=== PATIENT | female | born 1950 ===

== ENCOUNTER 2021-03-04 21:29 | Inpatient (IN) ==
[2021-03-05] MEDS ORDERED: Naloxone 0.4 MG/ML INJ IVP PRN (06:22)
[2021-03-05] MEDS ORDERED: Melatonin 3 MG TABLET PO PRN (06:22)
[2021-03-05 06:58] LABS: Basophils % 0.2 %; Hematocrit 30.9 % (35.3-44.9); Hemoglobin 10.1 g/dL (11.5-15.4); Immature Granulocytes % 1.3 % (0-4); Lymphocytes # 0.8 K/mcL (0.6-4.6); Mean Corpuscular HGB Conc 32.7 g/dL (31.6-35.5); Mean Corpuscular Hemoglobin 28.5 pg (28.0-33.3); Mean Corpuscular Volume 87.3 fL (83.0-100.0); Mean Platelet Volume 10.3 fL (9.4-12.4); Monocytes # 0.6 K/mcL (0.0-1.3); Monocytes % 6.6 %; Neutrophils # 7.8 K/mcL (1.6-8.9); Platelet Count 435 K/mcL (140-400); Red Blood Count 3.54 M/mcL (3.82-4.97); Red Cell Distribution Width 15.1 % (11.5-14.5); Segmented Neutrophils % 83.9 %; White Blood Count 9.4 K/mcL (4.3-11.1)
[2021-03-05] MEDS ORDERED: *HR* Dextrose 50 % in Water (Syg) 50 ML SYRINGE IVP PRN (07:14)
[2021-03-05] MEDS ORDERED: Dextrose Gel 15 GM/37.5 ML TUBE PO PRN ×2 (07:14)
[2021-03-05] MEDS ORDERED: D5% in Water 1,000 ML IVC PRN (07:14)
[2021-03-05] MEDS ORDERED: Insulin DETEMIR 100 UNIT/ML X5UNITS SUBQ SCH (07:15)
[2021-03-05 07:16] LABS: Lactate Dehydrogenase 674 Units/L (140-271)
[2021-03-05] MEDS ORDERED: *HR* Heparin 5,000 UNIT/ML VIAL IVP PRN ×2 (07:18)
[2021-03-05] MEDS ORDERED: *HR* Heparin 5,000 UNIT/ML VIAL IVP ONE (07:18)
[2021-03-05 07:42] LABS: Albumin 3.3 g/dL (3.5-5.7); Albumin/Globulin Ratio 0.9 (1.1-2.2); Bilirubin,Total 0.3 mg/dL (0.3-1.0); Calcium 8.4 mg/dL (8.6-10.3); Globulin 3.6 g/dL (2.4-3.5); Magnesium 2.1 mg/dL (1.6-2.6); Potassium 3.8 mEq/L (3.5-5.1); Total Protein 6.9 g/dL (6.4-8.9); Troponin I 17.11 ng/mL (< 0.04)
[2021-03-05] MEDS: Ipratropium 1 PUFF INHALER IH SCH ×3 (07:53→23:23)
[2021-03-05] MEDS ORDERED: Azithromycin 500 MG in 0.9 % Sodium Chloride 250 ML IVPB SCH (08:00)
[2021-03-05] MEDS ORDERED: cefTRIAXone 2,000 MG in Water for inj. (sterile) 20 ML IVP SCH (08:00)
[2021-03-05] MEDS ORDERED: Aspirin 325 MG TABLET PO ONE (08:15)
[2021-03-05] MEDS: Metoprolol XL (24 HR) Succ 25 MG TAB.ER.24H PO SCH (08:43)
[2021-03-05 08:44] LABS: Hematocrit 31.8 % (35.3-44.9); Hemoglobin 10.5 g/dL (11.5-15.4); Mean Corpuscular Volume 87.8 fL (83.0-100.0); Mean Platelet Volume 10.5 fL (9.4-12.4); Platelet Count 449 K/mcL (140-400); Red Blood Count 3.62 M/mcL (3.82-4.97); Red Cell Distribution Width 15.2 % (11.5-14.5); White Blood Count 9.9 K/mcL (4.3-11.1)
[2021-03-05] MEDS: Insulin LISPRO 300 UNITS/3 ML VIAL SUBQ SCH ×4 (08:45→20:47)
[2021-03-05] MEDS: Heparin 25,000UNIT/250ML 1/2NS 25,000 UNIT/250 ML IV.SOLN IVC SCH (08:50)
[2021-03-05 08:53] LABS: Heparin anti-factor XA UFH 0.56 IU/mL (0.30-0.70); INR 1.1; Prothrombin Time 12.7 Seconds (9.4-12.1)
[2021-03-05] MEDS ORDERED: Aspirin 81 MG TAB.CHEW PO SCH (09:00)
[2021-03-05] MEDS ORDERED: Furosemide 20 MG TABLET PO SCH (09:00)
[2021-03-05] MEDS ORDERED: Perflutren Lipid Microsphere 1.3 ML in 0.9 % Sodium Chloride 8.7 ML IVP PRN (09:20)
[2021-03-05] MEDS ORDERED: Isovue-370 500 ML BOTTLE IVP ONE (09:21)
[2021-03-05] MEDS ORDERED: 0.9 % Sodium Chloride 500 ML IVC ONE (09:27)
[2021-03-05 09:53] LABS: C-Reactive Protein 182 mg/L (Less than 10)
[2021-03-06] MEDS: Ipratropium 1 PUFF INHALER IH SCH ×4 (03:20→20:28)
[2021-03-06 06:54] LABS: Chol/HDL Ratio 2.7 (0-4.9)
[2021-03-06] MEDS: Heparin 25,000UNIT/250ML 1/2NS 25,000 UNIT/250 ML IV.SOLN IVC SCH (08:54)
[2021-03-06] MEDS: Insulin LISPRO 300 UNITS/3 ML VIAL SUBQ SCH ×4 (08:55→19:23)
[2021-03-06] MEDS: Cholecalciferol (D-3) 1,000 UNIT (25MCG) TABLET PO SCH (08:55)
[2021-03-06] MEDS: Metoprolol XL (24 HR) Succ 25 MG TAB.ER.24H PO SCH (08:56)
[2021-03-06] MEDS: Aspirin 81 MG TAB.CHEW PO SCH (08:56)
[2021-03-06] MEDS: Insulin DETEMIR 100 UNIT/ML X5UNITS SUBQ SCH (09:03)
[2021-03-06 10:35] LABS: Estimated Average Glucose 163 mg/dl; Hemoglobin A1C 7.3 %
[2021-03-06 16:53] LABS: Activated Partial Thrombo Time 32.9 Seconds (26.0-36.0)
[2021-03-06 17:26] LABS: Heparin anti-factor XA UFH 0.41 IU/mL (0.30-0.70)
[2021-03-07] MEDS: Ipratropium 1 PUFF INHALER IH SCH ×4 (04:04→19:58)
[2021-03-07] MEDS: Heparin 25,000UNIT/250ML 1/2NS 25,000 UNIT/250 ML IV.SOLN IVC SCH (09:21)
[2021-03-07] MEDS: Insulin DETEMIR 100 UNIT/ML X5UNITS SUBQ SCH (09:22)
[2021-03-07] MEDS: Metoprolol XL (24 HR) Succ 25 MG TAB.ER.24H PO SCH (09:22)
[2021-03-07] MEDS: Insulin LISPRO 300 UNITS/3 ML VIAL SUBQ SCH ×4 (09:22→19:28)
[2021-03-07] MEDS: Aspirin 81 MG TAB.CHEW PO SCH (09:22)
[2021-03-07] MEDS: Cholecalciferol (D-3) 1,000 UNIT (25MCG) TABLET PO SCH (09:22)
[2021-03-07 09:49] LABS: Basophils % 0.1 %; Hemoglobin 9.8 g/dL (11.5-15.4); Immature Granulocytes % 2.3 % (0-4); Lymphocytes % 4.5 %; Mean Corpuscular HGB Conc 32.7 g/dL (31.6-35.5); Mean Corpuscular Hemoglobin 28.4 pg (28.0-33.3); Mean Platelet Volume 10.3 fL (9.4-12.4); Monocytes # 1.1 K/mcL (0.0-1.3); Monocytes % 5.1 %; Neutrophils # 19.4 K/mcL (1.6-8.9); Nucleated Red Blood Cells 0.2 /100 WBC (0); Platelet Count 543 K/mcL (140-400); Red Blood Count 3.45 M/mcL (3.82-4.97); Red Cell Distribution Width 15.7 % (11.5-14.5)
[2021-03-07 10:06] LABS: Bilirubin,Total 0.4 mg/dL (0.3-1.0); Calcium 8.4 mg/dL (8.6-10.3); Globulin 3.1 g/dL (2.4-3.5); Potassium 3.8 mEq/L (3.5-5.1); Total Protein 6.1 g/dL (6.4-8.9)
[2021-03-08 00:46] LABS: Basophils % 0.1 %; Hematocrit 31.1 % (35.3-44.9); Hemoglobin 10.2 g/dL (11.5-15.4); Lymphocytes # 0.8 K/mcL (0.6-4.6); Lymphocytes % 3.6 %; Mean Corpuscular HGB Conc 32.8 g/dL (31.6-35.5); Mean Corpuscular Hemoglobin 28.5 pg (28.0-33.3); Mean Corpuscular Volume 86.9 fL (83.0-100.0); Mean Platelet Volume 10.2 fL (9.4-12.4); Monocytes # 1.3 K/mcL (0.0-1.3); Monocytes % 5.5 %; Neutrophils # 20.3 K/mcL (1.6-8.9); Nucleated Red Blood Cells 0.2 /100 WBC (0); Platelet Count 573 K/mcL (140-400); Red Blood Count 3.58 M/mcL (3.82-4.97); Red Cell Distribution Width 15.6 % (11.5-14.5); Segmented Neutrophils % 88.8 %; White Blood Count 22.8 K/mcL (4.3-11.1)
[2021-03-08 01:06] LABS: Albumin 3.1 g/dL (3.5-5.7); Bilirubin,Total 0.4 mg/dL (0.3-1.0); Calcium 8.5 mg/dL (8.6-10.3); Globulin 3.1 g/dL (2.4-3.5); Potassium 3.9 mEq/L (3.5-5.1); Total Protein 6.2 g/dL (6.4-8.9)
[2021-03-08 01:08] LABS: C-Reactive Protein 55 mg/L (Less than 10); Lactate Dehydrogenase 772 Units/L (140-271)
[2021-03-08 02:21] LABS: Ferritin 572 ng/mL (10-120)
[2021-03-08] MEDS: Ipratropium 1 PUFF INHALER IH SCH ×4 (04:36→19:25)
[2021-03-08] MEDS ORDERED: *HR* Enoxaparin 40 MG/0.4 ML SYRINGE SQ SCH (06:00)
[2021-03-08] MEDS: Insulin DETEMIR 100 UNIT/ML X5UNITS SUBQ SCH (09:08)
[2021-03-08] MEDS: Insulin LISPRO 300 UNITS/3 ML VIAL SUBQ SCH ×4 (09:08→20:00)
[2021-03-08] MEDS: Metoprolol XL (24 HR) Succ 25 MG TAB.ER.24H PO SCH (09:08)
[2021-03-08] MEDS: Aspirin 81 MG TAB.CHEW PO SCH (09:09)
[2021-03-08] MEDS: Cholecalciferol (D-3) 1,000 UNIT (25MCG) TABLET PO SCH (09:09)
[2021-03-09] MEDS: Ipratropium 1 PUFF INHALER IH SCH ×4 (03:05→19:53)
[2021-03-09] MEDS: *HR* Enoxaparin 30 MG/0.3 ML SYRINGE SQ SCH (05:10)
[2021-03-09 06:01] LABS: Basophils % 0.2 %; Hematocrit 33.2 % (35.3-44.9); Hemoglobin 10.8 g/dL (11.5-15.4); Immature Granulocytes % 1.6 % (0-4); Lymphocytes # 0.8 K/mcL (0.6-4.6); Mean Corpuscular HGB Conc 32.5 g/dL (31.6-35.5); Mean Corpuscular Hemoglobin 29.3 pg (28.0-33.3); Mean Corpuscular Volume 90.2 fL (83.0-100.0); Mean Platelet Volume 11.1 fL (9.4-12.4); Monocytes # 0.8 K/mcL (0.0-1.3); Monocytes % 3.8 %; Neutrophils # 17.9 K/mcL (1.6-8.9); Nucleated Red Blood Cells 0.2 /100 WBC (0); Platelet Count 381 K/mcL (140-400); Red Blood Count 3.68 M/mcL (3.82-4.97); Red Cell Distribution Width 15.9 % (11.5-14.5); Segmented Neutrophils % 90.4 %; White Blood Count 19.8 K/mcL (4.3-11.1)
[2021-03-09 06:34] LABS: Albumin 3.2 g/dL (3.5-5.7); Bilirubin,Total 0.6 mg/dL (0.3-1.0); Calcium 8.7 mg/dL (8.6-10.3); Globulin 3.2 g/dL (2.4-3.5); Potassium 4.3 mEq/L (3.5-5.1); Total Protein 6.4 g/dL (6.4-8.9)
[2021-03-09] MEDS: Insulin LISPRO 300 UNITS/3 ML VIAL SUBQ SCH ×4 (09:35→19:25)
[2021-03-09] MEDS: Cholecalciferol (D-3) 1,000 UNIT (25MCG) TABLET PO SCH (09:36)
[2021-03-09] MEDS: Aspirin 81 MG TAB.CHEW PO SCH (09:36)
[2021-03-09] MEDS: Insulin DETEMIR 100 UNIT/ML X5UNITS SUBQ SCH (09:36)
[2021-03-09] MEDS: Metoprolol XL (24 HR) Succ 25 MG TAB.ER.24H PO SCH (09:37)
[2021-03-10] MEDS: Ipratropium 1 PUFF INHALER IH SCH ×4 (04:11→20:54)
[2021-03-10 05:09] LABS: Basophils % 0.1 %; Eosinophils # 0.1 K/mcL (0.0-0.6); Eosinophils % 0.3 %; Hematocrit 31.7 % (35.3-44.9); Hemoglobin 10.1 g/dL (11.5-15.4); Immature Platelets 7.1 % (1.1-6.1); Lymphocytes # 0.6 K/mcL (0.6-4.6); Lymphocytes % 3.3 %; Mean Corpuscular HGB Conc 31.9 g/dL (31.6-35.5); Mean Corpuscular Hemoglobin 28.9 pg (28.0-33.3); Mean Corpuscular Volume 90.8 fL (83.0-100.0); Mean Platelet Volume 10.9 fL (9.4-12.4); Monocytes # 0.7 K/mcL (0.0-1.3); Monocytes % 3.7 %; Neutrophils # 17.6 K/mcL (1.6-8.9); Nucleated Red Blood Cells 0.2 /100 WBC (0); Platelet Count 244 K/mcL (140-400); Red Blood Count 3.49 M/mcL (3.82-4.97); Red Cell Distribution Width 15.9 % (11.5-14.5); Segmented Neutrophils % 90.6 %; White Blood Count 19.4 K/mcL (4.3-11.1)
[2021-03-10] MEDS: *HR* Enoxaparin 30 MG/0.3 ML SYRINGE SQ SCH (05:19)
[2021-03-10 05:34] LABS: Large Platelets Present (Not Present); Platelet Estimate Normal (Normal)
[2021-03-10 05:41] LABS: Albumin 3.1 g/dL (3.5-5.7); Bilirubin,Total 0.6 mg/dL (0.3-1.0); Calcium 8.4 mg/dL (8.6-10.3); Potassium 4.3 mEq/L (3.5-5.1); Total Protein 6.1 g/dL (6.4-8.9)
[2021-03-10] MEDS: Insulin LISPRO 300 UNITS/3 ML VIAL SUBQ SCH ×4 (09:44→21:08)
[2021-03-10] MEDS: Cholecalciferol (D-3) 1,000 UNIT (25MCG) TABLET PO SCH (09:55)
[2021-03-10] MEDS: Aspirin 81 MG TAB.CHEW PO SCH (09:55)
[2021-03-10] MEDS: Metoprolol XL (24 HR) Succ 25 MG TAB.ER.24H PO SCH (09:55)
[2021-03-10] MEDS: Insulin DETEMIR 100 UNIT/ML X5UNITS SUBQ SCH (09:57)
[2021-03-10] MEDS ORDERED: *HR* Enoxaparin 60 MG/0.6 ML SYRINGE SQ ONE (10:14)
[2021-03-10] MEDS: *HR* Enoxaparin 80 MG/0.8 ML SYRINGE SQ SCH (17:50)
[2021-03-11] MEDS: Ipratropium 1 PUFF INHALER IH SCH ×4 (03:17→20:15)
[2021-03-11 04:06] LABS: Basophils % 0.1 %; Eosinophils # 0.1 K/mcL (0.0-0.6); Eosinophils % 0.5 %; Hematocrit 31.5 % (35.3-44.9); Hemoglobin 9.9 g/dL (11.5-15.4); Immature Granulocytes % 1.9 % (0-4); Lymphocytes # 0.8 K/mcL (0.6-4.6); Lymphocytes % 4.1 %; Mean Corpuscular HGB Conc 31.4 g/dL (31.6-35.5); Mean Corpuscular Hemoglobin 27.8 pg (28.0-33.3); Mean Corpuscular Volume 88.5 fL (83.0-100.0); Monocytes # 0.8 K/mcL (0.0-1.3); Monocytes % 3.9 %; Neutrophils # 17.5 K/mcL (1.6-8.9); Nucleated Red Blood Cells 0.1 /100 WBC (0); Platelet Count 247 K/mcL (140-400); Red Blood Count 3.56 M/mcL (3.82-4.97); Red Cell Distribution Width 15.6 % (11.5-14.5); Segmented Neutrophils % 89.5 %; White Blood Count 19.6 K/mcL (4.3-11.1)
[2021-03-11 04:18] LABS: Calcium 8.4 mg/dL (8.6-10.3); Potassium 3.7 mEq/L (3.5-5.1)
[2021-03-11] MEDS: *HR* Enoxaparin 80 MG/0.8 ML SYRINGE SQ SCH (06:20)
[2021-03-11] MEDS: Insulin LISPRO 300 UNITS/3 ML VIAL SUBQ SCH ×4 (08:48→21:11)
[2021-03-11] MEDS ORDERED: Saline Nasal Spray 44 ML BOTTLE NS PRN (08:49)
[2021-03-11] MEDS: Aspirin 81 MG TAB.CHEW PO SCH (08:59)
[2021-03-11] MEDS: Metoprolol XL (24 HR) Succ 25 MG TAB.ER.24H PO SCH (08:59)
[2021-03-11] MEDS: Cholecalciferol (D-3) 1,000 UNIT (25MCG) TABLET PO SCH (08:59)
[2021-03-11] MEDS: Dexamethasone Sodium Phos/PF 10 MG/ML VIAL IVP SCH (09:00)
[2021-03-11] MEDS ORDERED: 0.9 % Sodium Chloride 1,000 ML IVC SCH (10:15)
[2021-03-11] MEDS: Insulin DETEMIR 100 UNIT/ML X5UNITS SUBQ SCH (13:47)
[2021-03-12] MEDS: Ipratropium 1 PUFF INHALER IH SCH ×4 (03:39→20:52)
[2021-03-12 06:27] LABS: Hematocrit 31.4 % (35.3-44.9); Hemoglobin 9.7 g/dL (11.5-15.4); Mean Corpuscular HGB Conc 30.9 g/dL (31.6-35.5); Mean Corpuscular Hemoglobin 28.1 pg (28.0-33.3); Mean Platelet Volume 11.4 fL (9.4-12.4); Platelet Count 224 K/mcL (140-400); Red Blood Count 3.45 M/mcL (3.82-4.97); Red Cell Distribution Width 15.7 % (11.5-14.5); White Blood Count 18.8 K/mcL (4.3-11.1)
[2021-03-12 06:47] LABS: Calcium 8.1 mg/dL (8.6-10.3); Magnesium 2.3 mg/dL (1.6-2.6); Phosphorous 4.7 mg/dL (2.7-4.5); Potassium 4.2 mEq/L (3.5-5.1)
[2021-03-12] MEDS ORDERED: Isovue-370 500 ML BOTTLE IVP ONE (07:23)
[2021-03-12] MEDS ORDERED: 0.9 % Sodium Chloride 1,000 ML IVC SCH (07:30)
[2021-03-12] MEDS: Insulin LISPRO 300 UNITS/3 ML VIAL SUBQ SCH ×4 (08:00→20:06)
[2021-03-12] MEDS: Metoprolol XL (24 HR) Succ 25 MG TAB.ER.24H PO SCH (09:22)
[2021-03-12] MEDS: Cholecalciferol (D-3) 1,000 UNIT (25MCG) TABLET PO SCH (09:22)
[2021-03-12] MEDS: Dexamethasone Sodium Phos/PF 10 MG/ML VIAL IVP SCH (09:22)
[2021-03-12] MEDS: Insulin DETEMIR 100 UNIT/ML X5UNITS SUBQ SCH (09:22)
[2021-03-12] MEDS: Aspirin 81 MG TAB.CHEW PO SCH (09:22)
[2021-03-12] MEDS: *HR* Enoxaparin 80 MG/0.8 ML SYRINGE SQ SCH (16:59)
[2021-03-13 04:45] LABS: Hematocrit 32.5 % (35.3-44.9); Mean Corpuscular HGB Conc 30.8 g/dL (31.6-35.5); Mean Corpuscular Hemoglobin 27.6 pg (28.0-33.3); Mean Corpuscular Volume 89.8 fL (83.0-100.0); Mean Platelet Volume 11.8 fL (9.4-12.4); Platelet Count 184 K/mcL (140-400); Red Blood Count 3.62 M/mcL (3.82-4.97); Red Cell Distribution Width 15.6 % (11.5-14.5)
[2021-03-13] MEDS: Ipratropium 1 PUFF INHALER IH SCH ×4 (04:49→20:08)
[2021-03-13 05:07] LABS: Calcium 8.1 mg/dL (8.6-10.3)
[2021-03-13] MEDS: *HR* Enoxaparin 80 MG/0.8 ML SYRINGE SQ SCH ×2 (06:41→17:21)
[2021-03-13] MEDS: Insulin LISPRO 300 UNITS/3 ML VIAL SUBQ SCH ×4 (08:23→20:10)
[2021-03-13] MEDS: Aspirin 81 MG TAB.CHEW PO SCH (08:34)
[2021-03-13] MEDS: Dexamethasone Sodium Phos/PF 10 MG/ML VIAL IVP SCH (08:34)
[2021-03-13] MEDS: Metoprolol XL (24 HR) Succ 25 MG TAB.ER.24H PO SCH (08:34)
[2021-03-13] MEDS: Cholecalciferol (D-3) 1,000 UNIT (25MCG) TABLET PO SCH (08:35)
[2021-03-13] MEDS ORDERED: Insulin DETEMIR 100 UNIT/ML X5UNITS SUBQ SCH (09:00)
[2021-03-13] MEDS ORDERED: Furosemide 20 MG TABLET PO ONE (10:19)
[2021-03-13] MEDS: ALPRAZolam 0.5 MG TABLET PO PRN ×2 (12:51→20:52)
[2021-03-13] MEDS ORDERED: Furosemide 40 MG/4 ML VIAL IVP ONE (13:59)
[2021-03-13] MEDS: Piperacillin/Tazobactam 3.375 GM in 0.9 % Sodium Chloride Mini Bag 100 ML IVPB SCH (17:21)
[2021-03-13] MEDS: Doxycycline 100 MG CAPSULE PO SCH (20:14)
[2021-03-14] MEDS: Piperacillin/Tazobactam 3.375 GM in 0.9 % Sodium Chloride Mini Bag 100 ML IVPB SCH ×4 (00:41→23:50)
[2021-03-14 02:24] LABS: Basophils % 0.1 %; Eosinophils # 0.1 K/mcL (0.0-0.6); Eosinophils % 0.3 %; Hematocrit 33.9 % (35.3-44.9); Hemoglobin 10.6 g/dL (11.5-15.4); Immature Granulocytes % 0.8 % (0-4); Lymphocytes # 0.6 K/mcL (0.6-4.6); Lymphocytes % 2.8 %; Mean Corpuscular HGB Conc 31.3 g/dL (31.6-35.5); Mean Corpuscular Volume 89.7 fL (83.0-100.0); Mean Platelet Volume 12.1 fL (9.4-12.4); Monocytes # 0.3 K/mcL (0.0-1.3); Monocytes % 1.3 %; Neutrophils # 18.7 K/mcL (1.6-8.9); Platelet Count 143 K/mcL (140-400); Red Blood Count 3.78 M/mcL (3.82-4.97); Red Cell Distribution Width 15.5 % (11.5-14.5); Segmented Neutrophils % 94.7 %; White Blood Count 19.7 K/mcL (4.3-11.1)
[2021-03-14 02:44] LABS: Albumin/Globulin Ratio 1.1 (1.1-2.2); Bilirubin,Total 0.8 mg/dL (0.3-1.0); Calcium 8.5 mg/dL (8.6-10.3); Globulin 2.7 g/dL (2.4-3.5); Potassium 3.9 mEq/L (3.5-5.1); Total Protein 5.7 g/dL (6.4-8.9)
[2021-03-14] MEDS: Ipratropium 1 PUFF INHALER IH SCH ×4 (03:30→20:09)
[2021-03-14] MEDS: *HR* Enoxaparin 80 MG/0.8 ML SYRINGE SQ SCH (06:05)
[2021-03-14] MEDS: Insulin LISPRO 300 UNITS/3 ML VIAL SUBQ SCH ×4 (07:42→20:35)
[2021-03-14] MEDS: Insulin DETEMIR 100 UNIT/ML X5UNITS SUBQ SCH (07:43)
[2021-03-14] MEDS: ALPRAZolam 0.5 MG TABLET PO PRN ×2 (07:56→21:50)
[2021-03-14] MEDS: Doxycycline 100 MG CAPSULE PO SCH ×3 (07:56→21:51)
[2021-03-14] MEDS: Aspirin 81 MG TAB.CHEW PO SCH (07:56)
[2021-03-14] MEDS: Metoprolol XL (24 HR) Succ 25 MG TAB.ER.24H PO SCH (07:56)
[2021-03-14] MEDS: Cholecalciferol (D-3) 1,000 UNIT (25MCG) TABLET PO SCH ×2 (07:56→08:14)
[2021-03-14] MEDS: Dexamethasone Sodium Phos/PF 10 MG/ML VIAL IVP SCH (07:57)
[2021-03-14] MEDS: Furosemide 40 MG/4 ML VIAL IVP SCH (12:49)
[2021-03-15] MEDS: Ipratropium 1 PUFF INHALER IH SCH ×4 (04:24→20:27)
[2021-03-15 05:03] LABS: Hematocrit 31.9 % (35.3-44.9); Hemoglobin 10.2 g/dL (11.5-15.4); Mean Corpuscular Hemoglobin 28.7 pg (28.0-33.3); Mean Corpuscular Volume 89.9 fL (83.0-100.0); Mean Platelet Volume 12.6 fL (9.4-12.4); Platelet Count 120 K/mcL (140-400); Red Blood Count 3.55 M/mcL (3.82-4.97); Red Cell Distribution Width 15.4 % (11.5-14.5)
[2021-03-15] MEDS: *HR* Enoxaparin 80 MG/0.8 ML SYRINGE SQ SCH (05:12)
[2021-03-15] MEDS: ALPRAZolam 0.5 MG TABLET PO PRN ×2 (05:13→20:30)
[2021-03-15 05:20] LABS: Potassium 4.3 mEq/L (3.5-5.1)
[2021-03-15] MEDS: Insulin LISPRO 300 UNITS/3 ML VIAL SUBQ SCH ×4 (08:55→19:58)
[2021-03-15] MEDS: Piperacillin/Tazobactam 3.375 GM in 0.9 % Sodium Chloride Mini Bag 100 ML IVPB SCH ×2 (09:06→16:35)
[2021-03-15] MEDS: Furosemide 40 MG/4 ML VIAL IVP SCH (09:06)
[2021-03-15] MEDS: Aspirin 81 MG TAB.CHEW PO SCH (09:07)
[2021-03-15] MEDS: Cholecalciferol (D-3) 1,000 UNIT (25MCG) TABLET PO SCH (09:07)
[2021-03-15] MEDS: Insulin DETEMIR 100 UNIT/ML X5UNITS SUBQ SCH (09:07)
[2021-03-15] MEDS: Dexamethasone Sodium Phos/PF 10 MG/ML VIAL IVP SCH (09:08)
[2021-03-15] MEDS: Doxycycline 100 MG CAPSULE PO SCH ×2 (09:08→20:05)
[2021-03-15] MEDS: Metoprolol XL (24 HR) Succ 25 MG TAB.ER.24H PO SCH (09:08)
[2021-03-16] MEDS: Piperacillin/Tazobactam 3.375 GM in 0.9 % Sodium Chloride Mini Bag 100 ML IVPB SCH ×4 (00:35→23:33)
[2021-03-16 01:09] LABS: Hematocrit 32.4 % (35.3-44.9); Hemoglobin 10.4 g/dL (11.5-15.4); Mean Corpuscular HGB Conc 32.1 g/dL (31.6-35.5); Mean Corpuscular Hemoglobin 28.3 pg (28.0-33.3); Mean Platelet Volume 12.5 fL (9.4-12.4); Platelet Count 120 K/mcL (140-400); Red Blood Count 3.68 M/mcL (3.82-4.97); Red Cell Distribution Width 15.4 % (11.5-14.5); White Blood Count 22.9 K/mcL (4.3-11.1)
[2021-03-16 01:21] LABS: Calcium 8.1 mg/dL (8.6-10.3); Phosphorous 4.6 mg/dL (2.7-4.5); Potassium 3.8 mEq/L (3.5-5.1)
[2021-03-16] MEDS: Ipratropium 1 PUFF INHALER IH SCH ×4 (03:51→20:14)
[2021-03-16] MEDS: *HR* Enoxaparin 80 MG/0.8 ML SYRINGE SQ SCH (05:32)
[2021-03-16] MEDS: Insulin LISPRO 300 UNITS/3 ML VIAL SUBQ SCH ×4 (09:21→20:20)
[2021-03-16] MEDS: Aspirin 81 MG TAB.CHEW PO SCH (09:21)
[2021-03-16] MEDS: Insulin DETEMIR 100 UNIT/ML X5UNITS SUBQ SCH (09:21)
[2021-03-16] MEDS: Metoprolol XL (24 HR) Succ 25 MG TAB.ER.24H PO SCH (09:21)
[2021-03-16] MEDS: Doxycycline 100 MG CAPSULE PO SCH ×2 (09:21→20:21)
[2021-03-16] MEDS: Cholecalciferol (D-3) 1,000 UNIT (25MCG) TABLET PO SCH (09:21)
[2021-03-16] MEDS: Furosemide 40 MG/4 ML VIAL IVP SCH (09:22)
[2021-03-17] MEDS: Ipratropium 1 PUFF INHALER IH SCH ×4 (03:46→21:34)
[2021-03-17 04:22] LABS: Basophils % 0.1 %; Eosinophils % 0.2 %; Hematocrit 30.1 % (35.3-44.9); Hemoglobin 9.8 g/dL (11.5-15.4); Immature Granulocytes % 0.8 % (0-4); Lymphocytes # 0.8 K/mcL (0.6-4.6); Lymphocytes % 4.3 %; Mean Corpuscular HGB Conc 32.6 g/dL (31.6-35.5); Mean Corpuscular Hemoglobin 28.8 pg (28.0-33.3); Mean Corpuscular Volume 88.5 fL (83.0-100.0); Mean Platelet Volume 12.9 fL (9.4-12.4); Monocytes # 0.5 K/mcL (0.0-1.3); Monocytes % 2.7 %; Neutrophils # 16.6 K/mcL (1.6-8.9); Platelet Count 120 K/mcL (140-400); Red Cell Distribution Width 15.6 % (11.5-14.5); Segmented Neutrophils % 91.9 %
[2021-03-17 04:42] LABS: Albumin 2.8 g/dL (3.5-5.7); Albumin/Globulin Ratio 1.1 (1.1-2.2); Bilirubin,Total 0.6 mg/dL (0.3-1.0); Globulin 2.6 g/dL (2.4-3.5); Magnesium 1.9 mg/dL (1.6-2.6); Phosphorous 4.4 mg/dL (2.7-4.5); Potassium 3.6 mEq/L (3.5-5.1); Total Protein 5.4 g/dL (6.4-8.9)
[2021-03-17] MEDS: *HR* Enoxaparin 80 MG/0.8 ML SYRINGE SQ SCH (05:12)
[2021-03-17] MEDS: Metoprolol XL (24 HR) Succ 25 MG TAB.ER.24H PO SCH (09:02)
[2021-03-17] MEDS: Aspirin 81 MG TAB.CHEW PO SCH (09:02)
[2021-03-17] MEDS: Cholecalciferol (D-3) 1,000 UNIT (25MCG) TABLET PO SCH (09:02)
[2021-03-17] MEDS: Doxycycline 100 MG CAPSULE PO SCH ×2 (09:02→21:30)
[2021-03-17] MEDS: Furosemide 40 MG/4 ML VIAL IVP SCH (09:03)
[2021-03-17] MEDS: Piperacillin/Tazobactam 3.375 GM in 0.9 % Sodium Chloride Mini Bag 100 ML IVPB SCH ×2 (09:04→14:39)
[2021-03-17] MEDS: Insulin LISPRO 300 UNITS/3 ML VIAL SUBQ SCH ×4 (09:04→21:30)
[2021-03-18] MEDS: ALPRAZolam 0.5 MG TABLET PO PRN ×2 (04:02→22:02)
[2021-03-18] MEDS: Ipratropium 1 PUFF INHALER IH SCH ×4 (04:27→20:22)
[2021-03-18] MEDS: *HR* Enoxaparin 80 MG/0.8 ML SYRINGE SQ SCH (05:42)
[2021-03-18 06:39] LABS: Basophils % 0.1 %; Eosinophils # 0.2 K/mcL (0.0-0.6); Eosinophils % 0.9 %; Hematocrit 31.8 % (35.3-44.9); Hemoglobin 10.3 g/dL (11.5-15.4); Lymphocytes % 5.4 %; Mean Corpuscular HGB Conc 32.4 g/dL (31.6-35.5); Mean Corpuscular Hemoglobin 28.5 pg (28.0-33.3); Mean Corpuscular Volume 88.1 fL (83.0-100.0); Mean Platelet Volume 12.8 fL (9.4-12.4); Monocytes # 0.6 K/mcL (0.0-1.3); Neutrophils # 17.1 K/mcL (1.6-8.9); Platelet Count 120 K/mcL (140-400); Red Blood Count 3.61 M/mcL (3.82-4.97); Red Cell Distribution Width 15.6 % (11.5-14.5); Segmented Neutrophils % 89.6 %; White Blood Count 19.1 K/mcL (4.3-11.1)
[2021-03-18 06:54] LABS: Calcium 8.4 mg/dL (8.6-10.3); Potassium 3.6 mEq/L (3.5-5.1)
[2021-03-18] MEDS: Insulin LISPRO 300 UNITS/3 ML VIAL SUBQ SCH ×4 (07:38→22:02)
[2021-03-18] MEDS: Doxycycline 100 MG CAPSULE PO SCH ×2 (09:04→22:02)
[2021-03-18] MEDS: Aspirin 81 MG TAB.CHEW PO SCH (09:04)
[2021-03-18] MEDS: Cholecalciferol (D-3) 1,000 UNIT (25MCG) TABLET PO SCH (09:04)
[2021-03-18] MEDS: Metoprolol XL (24 HR) Succ 25 MG TAB.ER.24H PO SCH (09:05)
[2021-03-19 03:46] LABS: Basophils % 0.1 %; Eosinophils # 0.5 K/mcL (0.0-0.6); Eosinophils % 2.8 %; Hematocrit 31.2 % (35.3-44.9); Hemoglobin 10.1 g/dL (11.5-15.4); Immature Granulocytes % 0.8 % (0-4); Lymphocytes # 1.3 K/mcL (0.6-4.6); Lymphocytes % 6.6 %; Mean Corpuscular HGB Conc 32.4 g/dL (31.6-35.5); Mean Corpuscular Hemoglobin 28.9 pg (28.0-33.3); Mean Corpuscular Volume 89.1 fL (83.0-100.0); Mean Platelet Volume 12.8 fL (9.4-12.4); Monocytes # 0.6 K/mcL (0.0-1.3); Monocytes % 3.1 %; Neutrophils # 16.5 K/mcL (1.6-8.9); Platelet Count 124 K/mcL (140-400); Red Cell Distribution Width 15.9 % (11.5-14.5); Segmented Neutrophils % 86.6 %
[2021-03-19 04:06] LABS: Albumin 2.9 g/dL (3.5-5.7); Albumin/Globulin Ratio 1.2 (1.1-2.2); Bilirubin,Total 0.6 mg/dL (0.3-1.0); Calcium 8.4 mg/dL (8.6-10.3); Globulin 2.5 g/dL (2.4-3.5); Potassium 3.7 mEq/L (3.5-5.1); Total Protein 5.4 g/dL (6.4-8.9)
[2021-03-19] MEDS: Ipratropium 1 PUFF INHALER IH SCH ×4 (04:34→19:46)
[2021-03-19] MEDS ORDERED: *HR* Enoxaparin 80 MG/0.8 ML SYRINGE SQ SCH (06:00)
[2021-03-19] MEDS: Insulin LISPRO 300 UNITS/3 ML VIAL SUBQ SCH ×4 (07:40→19:46)
[2021-03-19] MEDS: Cholecalciferol (D-3) 1,000 UNIT (25MCG) TABLET PO SCH (07:45)
[2021-03-19] MEDS: Metoprolol XL (24 HR) Succ 25 MG TAB.ER.24H PO SCH (07:45)
[2021-03-19] MEDS: Aspirin 81 MG TAB.CHEW PO SCH (07:46)
[2021-03-19] MEDS: Doxycycline 100 MG CAPSULE PO SCH ×2 (07:46→20:04)
[2021-03-19] MEDS: ALPRAZolam 0.5 MG TABLET PO PRN ×2 (08:32→20:04)
[2021-03-19] MEDS: Oxymetazoline Nasal SPRAY BOTTLE 15ML NS SCH (09:43)
[2021-03-20] MEDS: Ipratropium 1 PUFF INHALER IH SCH ×4 (03:48→19:44)
[2021-03-20] MEDS ORDERED: *HR* LORazepam 2 MG/ML VIAL IVP ONE (06:03)
[2021-03-20] MEDS: *HR* Enoxaparin 30 MG/0.3 ML SYRINGE SQ SCH (06:18)
[2021-03-20 06:34] LABS: Basophils % 0.1 %; Red Cell Distribution Width 15.9 % (11.5-14.5)
[2021-03-20 06:35] LABS: Eosinophils # 0.5 K/mcL (0.0-0.6); Eosinophils % 2.8 %; Hematocrit 31.5 % (35.3-44.9); Hemoglobin 9.7 g/dL (11.5-15.4); Immature Granulocytes % 0.7 % (0-4); Immature Platelets 11.3 % (1.1-6.1); Lymphocytes % 6.1 %; Mean Corpuscular HGB Conc 30.8 g/dL (31.6-35.5); Mean Corpuscular Hemoglobin 28.1 pg (28.0-33.3); Mean Corpuscular Volume 91.3 fL (83.0-100.0); Mean Platelet Volume 13.3 fL (9.4-12.4); Monocytes # 0.6 K/mcL (0.0-1.3); Monocytes % 3.5 %; Neutrophils # 14.3 K/mcL (1.6-8.9); Platelet Count 104 K/mcL (140-400); Red Blood Count 3.45 M/mcL (3.82-4.97); Segmented Neutrophils % 86.8 %; White Blood Count 16.5 K/mcL (4.3-11.1)
[2021-03-20 07:11] LABS: Albumin 2.8 g/dL (3.5-5.7); Albumin/Globulin Ratio 1.1 (1.1-2.2); Bilirubin,Total 0.6 mg/dL (0.3-1.0); Calcium 8.4 mg/dL (8.6-10.3); Globulin 2.5 g/dL (2.4-3.5); Potassium 3.6 mEq/L (3.5-5.1); Total Protein 5.3 g/dL (6.4-8.9)
[2021-03-20] MEDS: Furosemide 40 MG/4 ML VIAL IVP SCH (08:22)
[2021-03-20] MEDS: Insulin LISPRO 300 UNITS/3 ML VIAL SUBQ SCH ×4 (08:24→22:34)
[2021-03-20] MEDS: Oxymetazoline Nasal SPRAY BOTTLE 15ML NS SCH (08:30)
[2021-03-20] MEDS: Aspirin 81 MG TAB.CHEW PO SCH (08:30)
[2021-03-20] MEDS: Cholecalciferol (D-3) 1,000 UNIT (25MCG) TABLET PO SCH (08:31)
[2021-03-20] MEDS: Metoprolol XL (24 HR) Succ 25 MG TAB.ER.24H PO SCH (08:31)
[2021-03-20] MEDS: ALPRAZolam 0.5 MG TABLET PO PRN (22:34)
[2021-03-21] MEDS: Ipratropium 1 PUFF INHALER IH SCH ×4 (03:01→20:13)
[2021-03-21] MEDS: *HR* Enoxaparin 30 MG/0.3 ML SYRINGE SQ SCH (05:47)
[2021-03-21 06:54] LABS: Basophils % 0.2 %; Eosinophils # 0.9 K/mcL (0.0-0.6); Eosinophils % 4.8 %; Hemoglobin 9.8 g/dL (11.5-15.4); Immature Granulocytes % 0.4 % (0-4); Lymphocytes # 0.8 K/mcL (0.6-4.6); Lymphocytes % 4.6 %; Mean Corpuscular HGB Conc 30.6 g/dL (31.6-35.5); Mean Corpuscular Hemoglobin 28.3 pg (28.0-33.3); Mean Corpuscular Volume 92.5 fL (83.0-100.0); Monocytes # 0.6 K/mcL (0.0-1.3); Monocytes % 3.3 %; Neutrophils # 15.5 K/mcL (1.6-8.9); Platelet Count 112 K/mcL (140-400); Red Blood Count 3.46 M/mcL (3.82-4.97); Segmented Neutrophils % 86.7 %; White Blood Count 17.8 K/mcL (4.3-11.1)
[2021-03-21 06:56] LABS: Albumin 2.9 g/dL (3.5-5.7); Albumin/Globulin Ratio 1.2 (1.1-2.2); Bilirubin,Total 0.6 mg/dL (0.3-1.0); Calcium 8.6 mg/dL (8.6-10.3); Globulin 2.5 g/dL (2.4-3.5); Potassium 3.9 mEq/L (3.5-5.1); Total Protein 5.4 g/dL (6.4-8.9)
[2021-03-21 07:03] LABS: Bilirubin,Direct 0.1 mg/dL (0.0-0.2); Bilirubin,Indirect 0.5 mg/dL (0.0-1.0)
[2021-03-21] MEDS: Furosemide 40 MG/4 ML VIAL IVP SCH (09:33)
[2021-03-21] MEDS: Metoprolol XL (24 HR) Succ 25 MG TAB.ER.24H PO SCH (09:35)
[2021-03-21] MEDS: Cholecalciferol (D-3) 1,000 UNIT (25MCG) TABLET PO SCH (09:36)
[2021-03-21] MEDS: Aspirin 81 MG TAB.CHEW PO SCH (09:36)
[2021-03-21] MEDS: Insulin LISPRO 300 UNITS/3 ML VIAL SUBQ SCH ×4 (09:37→21:15)
[2021-03-21] MEDS: Oxymetazoline Nasal SPRAY BOTTLE 15ML NS SCH (09:49)
[2021-03-21] MEDS: ALPRAZolam 0.5 MG TABLET PO PRN ×2 (14:42→22:33)
[2021-03-22] MEDS: Ipratropium 1 PUFF INHALER IH SCH ×4 (03:41→20:34)
[2021-03-22] MEDS: *HR* Enoxaparin 30 MG/0.3 ML SYRINGE SQ SCH (05:36)
[2021-03-22 06:20] LABS: Basophils % 0.2 %; Eosinophils % 7.8 %; Mean Corpuscular HGB Conc 30.6 g/dL (31.6-35.5)
[2021-03-22 06:22] LABS: Eosinophils # 1.4 K/mcL (0.0-0.6); Hematocrit 31.4 % (35.3-44.9); Hemoglobin 9.6 g/dL (11.5-15.4); Immature Granulocytes % 0.6 % (0-4); Immature Platelets 8.9 % (1.1-6.1); Lymphocytes # 0.9 K/mcL (0.6-4.6); Lymphocytes % 5.2 %; Mean Corpuscular Hemoglobin 28.2 pg (28.0-33.3); Mean Corpuscular Volume 92.4 fL (83.0-100.0); Mean Platelet Volume 12.8 fL (9.4-12.4); Monocytes # 0.6 K/mcL (0.0-1.3); Monocytes % 3.6 %; Platelet Count 121 K/mcL (140-400); Segmented Neutrophils % 82.6 %; White Blood Count 17.4 K/mcL (4.3-11.1)
[2021-03-22 06:24] LABS: Neutrophils # 14.4 K/mcL (1.6-8.9)
[2021-03-22 06:44] LABS: Calcium 8.9 mg/dL (8.6-10.3)
[2021-03-22] MEDS: Insulin LISPRO 300 UNITS/3 ML VIAL SUBQ SCH ×4 (07:55→19:37)
[2021-03-22] MEDS: Aspirin 81 MG TAB.CHEW PO SCH (10:28)
[2021-03-22] MEDS: Metoprolol XL (24 HR) Succ 25 MG TAB.ER.24H PO SCH (10:28)
[2021-03-22] MEDS: Cholecalciferol (D-3) 1,000 UNIT (25MCG) TABLET PO SCH (10:29)
[2021-03-22] MEDS: Furosemide 40 MG/4 ML VIAL IVP SCH (10:29)
[2021-03-22] MEDS: Oxymetazoline Nasal SPRAY BOTTLE 15ML NS SCH (10:29)
[2021-03-22] MEDS: ALPRAZolam 0.5 MG TABLET PO PRN ×2 (10:31→23:16)
[2021-03-23 03:24] LABS: Basophils % 0.3 %; Eosinophils # 1.2 K/mcL (0.0-0.6); Hematocrit 29.6 % (35.3-44.9); Hemoglobin 9.4 g/dL (11.5-15.4); Immature Granulocytes % 0.4 % (0-4); Lymphocytes # 0.8 K/mcL (0.6-4.6); Lymphocytes % 5.1 %; Mean Corpuscular HGB Conc 31.8 g/dL (31.6-35.5); Mean Corpuscular Hemoglobin 28.7 pg (28.0-33.3); Mean Corpuscular Volume 90.5 fL (83.0-100.0); Mean Platelet Volume 12.2 fL (9.4-12.4); Monocytes # 0.6 K/mcL (0.0-1.3); Monocytes % 3.8 %; Neutrophils # 12.8 K/mcL (1.6-8.9); Platelet Count 137 K/mcL (140-400); Red Blood Count 3.27 M/mcL (3.82-4.97); Red Cell Distribution Width 16.2 % (11.5-14.5); Segmented Neutrophils % 82.4 %; White Blood Count 15.6 K/mcL (4.3-11.1)
[2021-03-23] MEDS: Ipratropium 1 PUFF INHALER IH SCH ×4 (03:41→21:38)
[2021-03-23 03:45] LABS: Calcium 8.9 mg/dL (8.6-10.3); Potassium 4.3 mEq/L (3.5-5.1)
[2021-03-23] MEDS: *HR* Enoxaparin 30 MG/0.3 ML SYRINGE SQ SCH (05:56)
[2021-03-23] MEDS: Insulin LISPRO 300 UNITS/3 ML VIAL SUBQ SCH ×4 (09:05→20:09)
[2021-03-23] MEDS: Cholecalciferol (D-3) 1,000 UNIT (25MCG) TABLET PO SCH (09:06)
[2021-03-23] MEDS: Metoprolol XL (24 HR) Succ 25 MG TAB.ER.24H PO SCH (09:06)
[2021-03-23] MEDS: Aspirin 81 MG TAB.CHEW PO SCH (09:06)
[2021-03-23] MEDS: Furosemide 40 MG/4 ML VIAL IVP SCH (09:18)
[2021-03-23] MEDS: Oxymetazoline Nasal SPRAY BOTTLE 15ML NS SCH (11:32)
[2021-03-23] MEDS: ALPRAZolam 0.5 MG TABLET PO PRN ×2 (11:59→20:15)
[2021-03-23] MEDS: Magic Mouthwash 10 ML UD Cup PO SCH ×2 (17:10)
[2021-03-23] MEDS: Miconazole 2% ointment 141 APPL/141 GM TUBE TP SCH (20:27)
[2021-03-24] MEDS: Ipratropium 1 PUFF INHALER IH SCH ×4 (03:26→20:38)
[2021-03-24] MEDS: *HR* Enoxaparin 40 MG/0.4 ML SYRINGE SQ SCH (05:19)
[2021-03-24] MEDS: Insulin LISPRO 300 UNITS/3 ML VIAL SUBQ SCH ×4 (09:51→19:36)
[2021-03-24] MEDS: Magic Mouthwash 10 ML UD Cup PO SCH ×3 (09:53→18:43)
[2021-03-24] MEDS: Aspirin 81 MG TAB.CHEW PO SCH (09:53)
[2021-03-24] MEDS: Metoprolol XL (24 HR) Succ 25 MG TAB.ER.24H PO SCH (09:54)
[2021-03-24] MEDS: Cholecalciferol (D-3) 1,000 UNIT (25MCG) TABLET PO SCH (09:54)
[2021-03-24] MEDS: Oxymetazoline Nasal SPRAY BOTTLE 15ML NS SCH (09:56)
[2021-03-24] MEDS: ALPRAZolam 0.5 MG TABLET PO PRN ×2 (09:59→19:37)
[2021-03-24] MEDS: Furosemide 40 MG/4 ML VIAL IVP SCH (10:01)
[2021-03-24] MEDS: Miconazole 2% ointment 141 APPL/141 GM TUBE TP SCH ×2 (10:07→19:37)
[2021-03-25] MEDS: Ipratropium 1 PUFF INHALER IH SCH ×4 (04:08→22:29)
[2021-03-25] MEDS: *HR* Enoxaparin 40 MG/0.4 ML SYRINGE SQ SCH (05:23)
[2021-03-25] MEDS: ALPRAZolam 0.5 MG TABLET PO PRN (05:36)
[2021-03-25 06:53] LABS: Calcium 9.5 mg/dL (8.6-10.3); Magnesium 1.9 mg/dL (1.6-2.6); Phosphorous 3.6 mg/dL (2.7-4.5); Potassium 4.2 mEq/L (3.5-5.1)
[2021-03-25 07:23] LABS: Basophils % 0.2 %; Eosinophils # 1.5 K/mcL (0.0-0.6); Eosinophils % 10.5 %; Hematocrit 30.3 % (35.3-44.9); Hemoglobin 9.8 g/dL (11.5-15.4); Immature Granulocytes % 0.3 % (0-4); Lymphocytes # 0.6 K/mcL (0.6-4.6); Lymphocytes % 4.2 %; Mean Corpuscular HGB Conc 32.3 g/dL (31.6-35.5); Mean Corpuscular Hemoglobin 30.3 pg (28.0-33.3); Mean Corpuscular Volume 93.8 fL (83.0-100.0); Mean Platelet Volume 12.8 fL (9.4-12.4); Monocytes # 0.7 K/mcL (0.0-1.3); Monocytes % 4.8 %; Neutrophils # 11.7 K/mcL (1.6-8.9); Platelet Count 175 K/mcL (140-400); Red Blood Count 3.23 M/mcL (3.82-4.97); Red Cell Distribution Width 16.4 % (11.5-14.5); White Blood Count 14.7 K/mcL (4.3-11.1)
[2021-03-25] MEDS: dexAMETHasone 4 MG TABLET PO SCH (09:17)
[2021-03-25] MEDS: Metoprolol XL (24 HR) Succ 25 MG TAB.ER.24H PO SCH (09:17)
[2021-03-25] MEDS: Aspirin 81 MG TAB.CHEW PO SCH (09:18)
[2021-03-25] MEDS: Furosemide 40 MG/4 ML VIAL IVP SCH (09:18)
[2021-03-25] MEDS: Cholecalciferol (D-3) 1,000 UNIT (25MCG) TABLET PO SCH (09:18)
[2021-03-25] MEDS ORDERED: *HR* HYDROcodone/Acet 5/325 mg TABLET PO PRN (09:22)
[2021-03-25] MEDS: Insulin LISPRO 300 UNITS/3 ML VIAL SUBQ SCH ×4 (09:30→22:17)
[2021-03-25] MEDS: Miconazole 2% ointment 141 APPL/141 GM TUBE TP SCH ×2 (09:41→22:18)
[2021-03-25] MEDS: Magic Mouthwash 10 ML UD Cup PO SCH ×3 (09:41→17:08)
[2021-03-25 13:56] LABS: Fibrinogen 416 mg/dL (169-393)
[2021-03-25 14:20] LABS: D-Dimer 1219 ng/mLFEU (0-500)
[2021-03-25] MEDS ORDERED: *HR* LORazepam 2 MG/ML VIAL IVP ONE (22:20)
[2021-03-26] MEDS ORDERED: *HR* LORazepam 2 MG/ML VIAL IVP ONE ×2 (03:14→10:26)
[2021-03-26] MEDS: Ipratropium 1 PUFF INHALER IH SCH ×4 (03:46→19:58)
[2021-03-26] MEDS: *HR* Enoxaparin 40 MG/0.4 ML SYRINGE SQ SCH (05:29)
[2021-03-26] MEDS: Insulin LISPRO 300 UNITS/3 ML VIAL SUBQ SCH ×5 (09:47→23:47)
[2021-03-26] MEDS: Miconazole 2% ointment 141 APPL/141 GM TUBE TP SCH ×2 (09:54→20:52)
[2021-03-26] MEDS: Magic Mouthwash 10 ML UD Cup PO SCH ×3 (10:44→17:25)
[2021-03-26] MEDS: Furosemide 40 MG/4 ML VIAL IVP SCH (10:50)
[2021-03-26] MEDS: Aspirin 81 MG TAB.CHEW PO SCH (13:21)
[2021-03-26] MEDS: dexAMETHasone 4 MG TABLET PO SCH (13:21)
[2021-03-26] MEDS: lisinopriL 5 MG TABLET PO SCH (13:23)
[2021-03-26] MEDS: Metoprolol XL (24 HR) Succ 25 MG TAB.ER.24H PO SCH (13:23)
[2021-03-26] MEDS: Cholecalciferol (D-3) 1,000 UNIT (25MCG) TABLET PO SCH (13:23)
[2021-03-26] MEDS ORDERED: *HR* Labetalol 20 MG/4 ML SYRINGE IVP PRN (14:34)
[2021-03-26] MEDS: *HR* LORazepam 2 MG/ML VIAL IVP PRN (21:34)
[2021-03-27] MEDS: Ipratropium 1 PUFF INHALER IH SCH ×4 (04:20→19:48)
[2021-03-27 05:03] LABS: Basophils # 0.1 K/mcL (0.0-0.2); Basophils % 0.4 %; Eosinophils # 0.8 K/mcL (0.0-0.6); Eosinophils % 5.8 %; Hematocrit 30.9 % (35.3-44.9); Hemoglobin 9.6 g/dL (11.5-15.4); Immature Granulocytes % 0.4 % (0-4); Mean Corpuscular HGB Conc 31.1 g/dL (31.6-35.5); Mean Corpuscular Hemoglobin 28.8 pg (28.0-33.3); Mean Corpuscular Volume 92.8 fL (83.0-100.0); Mean Platelet Volume 11.7 fL (9.4-12.4); Monocytes % 7.1 %; Neutrophils # 11.3 K/mcL (1.6-8.9); Platelet Count 235 K/mcL (140-400); Red Blood Count 3.33 M/mcL (3.82-4.97); Red Cell Distribution Width 16.5 % (11.5-14.5); Segmented Neutrophils % 79.3 %; White Blood Count 14.2 K/mcL (4.3-11.1)
[2021-03-27 05:23] LABS: Calcium 9.4 mg/dL (8.6-10.3); Magnesium 2.1 mg/dL (1.6-2.6); Phosphorous 3.6 mg/dL (2.7-4.5); Potassium 4.1 mEq/L (3.5-5.1)
[2021-03-27] MEDS: *HR* Enoxaparin 40 MG/0.4 ML SYRINGE SQ SCH (06:03)
[2021-03-27] MEDS: *HR* LORazepam 2 MG/ML VIAL IVP PRN ×3 (10:01→23:44)
[2021-03-27] MEDS: Magic Mouthwash 10 ML UD Cup PO SCH ×3 (10:47→17:47)
[2021-03-27] MEDS: Furosemide 40 MG/4 ML VIAL IVP SCH (10:54)
[2021-03-27] MEDS: Miconazole 2% ointment 141 APPL/141 GM TUBE TP SCH ×2 (10:59→20:30)
[2021-03-27] MEDS: dexAMETHasone 4 MG TABLET PO SCH (11:10)
[2021-03-27] MEDS: Aspirin 81 MG TAB.CHEW PO SCH (11:10)
[2021-03-27] MEDS: Metoprolol XL (24 HR) Succ 25 MG TAB.ER.24H PO SCH (11:10)
[2021-03-27] MEDS: lisinopriL 5 MG TABLET PO SCH (11:11)
[2021-03-27] MEDS: Cholecalciferol (D-3) 1,000 UNIT (25MCG) TABLET PO SCH (11:11)
[2021-03-27] MEDS: Insulin LISPRO 300 UNITS/3 ML VIAL SUBQ SCH ×3 (12:24→23:58)
[2021-03-28] MEDS: Ipratropium 1 PUFF INHALER IH SCH ×4 (03:49→21:56)
[2021-03-28 04:22] LABS: Calcium 9.4 mg/dL (8.6-10.3); Magnesium 2.1 mg/dL (1.6-2.6); Phosphorous 4.7 mg/dL (2.7-4.5); Potassium 4.6 mEq/L (3.5-5.1)
[2021-03-28] MEDS: *HR* Enoxaparin 40 MG/0.4 ML SYRINGE SQ SCH (05:12)
[2021-03-28] MEDS: Insulin LISPRO 300 UNITS/3 ML VIAL SUBQ SCH ×3 (05:15→18:30)
[2021-03-28] MEDS ORDERED: *HR* Metoprolol 5 MG/5 ML VIAL IVP PRN (07:17)
[2021-03-28] MEDS ORDERED: D5% in 0.45% NACL 500 ML IVC SCH (07:30)
[2021-03-28] MEDS: *HR* LORazepam 2 MG/ML VIAL IVP PRN ×2 (11:01→18:05)
[2021-03-28] MEDS: Magic Mouthwash 10 ML UD Cup PO SCH ×3 (11:02→18:30)
[2021-03-28] MEDS: Aspirin 81 MG TAB.CHEW PO SCH (11:07)
[2021-03-28] MEDS: Miconazole 2% ointment 141 APPL/141 GM TUBE TP SCH ×2 (11:07→22:13)
[2021-03-28] MEDS: lisinopriL 5 MG TABLET PO SCH (11:08)
[2021-03-28] MEDS: Cholecalciferol (D-3) 1,000 UNIT (25MCG) TABLET PO SCH (11:08)
[2021-03-28] MEDS: Metoprolol XL (24 HR) Succ 25 MG TAB.ER.24H PO SCH (11:08)
[2021-03-29] MEDS: *HR* LORazepam 2 MG/ML VIAL IVP PRN ×2 (00:39→06:10)
[2021-03-29] MEDS: Insulin LISPRO 300 UNITS/3 ML VIAL SUBQ SCH ×4 (02:33→20:57)
[2021-03-29] MEDS: Ipratropium 1 PUFF INHALER IH SCH ×5 (03:44→19:46)
[2021-03-29] MEDS: *HR* Enoxaparin 40 MG/0.4 ML SYRINGE SQ SCH (05:41)
[2021-03-29 07:03] LABS: Basophils % 0.1 %; Eosinophils % 0.1 %; Hematocrit 30.8 % (35.3-44.9); Hemoglobin 9.5 g/dL (11.5-15.4); Immature Granulocytes % 0.4 % (0-4); Lymphocytes # 0.5 K/mcL (0.6-4.6); Lymphocytes % 3.1 %; Mean Corpuscular HGB Conc 30.8 g/dL (31.6-35.5); Mean Corpuscular Hemoglobin 29.3 pg (28.0-33.3); Mean Corpuscular Volume 95.1 fL (83.0-100.0); Mean Platelet Volume 11.5 fL (9.4-12.4); Monocytes % 6.6 %; Platelet Count 272 K/mcL (140-400); Red Blood Count 3.24 M/mcL (3.82-4.97); Red Cell Distribution Width 17.2 % (11.5-14.5); Segmented Neutrophils % 89.7 %; White Blood Count 15.6 K/mcL (4.3-11.1)
[2021-03-29 07:24] LABS: Calcium 9.3 mg/dL (8.6-10.3); Magnesium 2.2 mg/dL (1.6-2.6); Phosphorous 3.4 mg/dL (2.7-4.5)
[2021-03-29] MEDS: Cholecalciferol (D-3) 1,000 UNIT (25MCG) TABLET PO SCH (07:51)
[2021-03-29] MEDS: Aspirin 81 MG TAB.CHEW PO SCH (07:51)
[2021-03-29] MEDS: Miconazole 2% ointment 141 APPL/141 GM TUBE TP SCH ×2 (07:52→20:57)
[2021-03-29] MEDS: Metoprolol XL (24 HR) Succ 25 MG TAB.ER.24H PO SCH (07:52)
[2021-03-29] MEDS: lisinopriL 5 MG TABLET PO SCH (07:52)
[2021-03-29] MEDS: Magic Mouthwash 10 ML UD Cup PO SCH ×3 (07:52→18:36)
[2021-03-29] MEDS: Morphine Sulfate Oral CONC 10 MG/0.5 ML ORAL.SYG SL SCH ×3 (18:41→21:40)
[2021-03-29 18:46] VITALS: BP 135/51; PULSE 80; TEMP 98.1
[2021-03-29] MEDS ORDERED: *HR* LORazepam 2 MG/ML VIAL IVP PRN (19:02)
[2021-03-29] MEDS: *HR* LORazepam 2 MG/ML VIAL IVP SCH ×2 (20:56→22:45)
[2021-03-29] MEDS ORDERED: *HR* LORazepam 1 MG TABLET PO SCH (21:00)
[2021-03-29] MEDS: Morphine Sulfate Oral CONC 10 MG/0.5 ML ORAL.SYG SL PRN (21:40)
[2021-03-30] MEDS: *HR* LORazepam 2 MG/ML VIAL IVP SCH ×5 (00:03→08:24)
[2021-03-30] MEDS: Insulin LISPRO 300 UNITS/3 ML VIAL SUBQ SCH ×2 (00:04→06:40)
[2021-03-30] MEDS: Morphine Sulfate Oral CONC 10 MG/0.5 ML ORAL.SYG SL SCH ×3 (00:07→08:25)
[2021-03-30] MEDS: Morphine Sulfate Oral CONC 10 MG/0.5 ML ORAL.SYG SL PRN ×2 (02:31→06:35)
[2021-03-30] MEDS: Ipratropium 1 PUFF INHALER IH SCH (04:02)
[2021-03-30 04:37] VITALS: O2SAT 82
[2021-03-30] MEDS: *HR* Enoxaparin 40 MG/0.4 ML SYRINGE SQ SCH (06:40)
[2021-03-30] MEDS: Aspirin 81 MG TAB.CHEW PO SCH (07:15)
[2021-03-30] MEDS: Miconazole 2% ointment 141 APPL/141 GM TUBE TP SCH (07:15)
[2021-03-30] MEDS: Cholecalciferol (D-3) 1,000 UNIT (25MCG) TABLET PO SCH (07:15)
[2021-03-30] MEDS: Metoprolol XL (24 HR) Succ 25 MG TAB.ER.24H PO SCH (07:15)
[2021-03-30] MEDS: lisinopriL 5 MG TABLET PO SCH (07:15)
[2021-03-30] MEDS: Magic Mouthwash 10 ML UD Cup PO SCH (07:15)
== END 2021-03-30 10:26 | disposition expired | DRG 871 ==
LOC: 2NENU → SUATTDRO 03-05 07:56
PROVIDERS: ADMIT Internal Medicine; ATTEND Internal Medicine